=== PATIENT | female | born 1980 | race African-American/Black ===

== ENCOUNTER 2025-02-04 08:01 | Emergency (ER) | payer MEDICARE, OTHER ==
[~2025-02-04] VITALS: Ht 162.6 cm; Wt 65.8 kg
[2025-02-04] MEDS: IV NS 0.9% 1,000 ML BAG IV ONE (08:21)
[2025-02-04] MEDS ORDERED: LORAZEPAM INJ 2 MG/ML VIAL ONE (08:22)
[2025-02-04 08:23] LABS: BASOPHILS % (AUTO) 0.6 % (0.0-2.0); EOSINOPHILS # (AUTO) 0.1 K/uL (0.0-0.7); EOSINOPHILS % (AUTO) 1.3 % (0.0-6.0); HEMATOCRIT 42 % (33-45); LYMPHOCYTES # (AUTO) 0.7 K/uL (0.8-4.8); LYMPHOCYTES % (AUTO) 15.7 % (20.0-44.0); MEAN CORPUSCULAR HEMOGLOBIN 31 PG (26.0-33.0); MEAN CORPUSCULAR HGB CONC 33 g/dl (31.0-36.0); MEAN CORPUSCULAR VOLUME 92 fL (82-100); MONOCYTES # (AUTO) 0.2 K/uL (0.1-1.30); MONOCYTES % (AUTO) 5.4 % (2.0-12.0); NEUTROPHILS # (AUTO) 3.4 K/uL (1.8-8.9); PLATELET COUNT (AUTO) 215 K/uL (150-450); RED BLOOD CELL COUNT(AUTO) 4.58 MIL/uL (4.0-5.2); RED CELL DISTRIBUTION WIDTH 13.7 % (11.5-15.0); WHITE BLOOD COUNT (AUTO) 4.4 K/uL (4.3-11.0)
[2025-02-04] MEDS ORDERED: ONDANSETRON HCL/PF 4 MG/2 ML VIAL ONE (08:27)
[2025-02-04] MEDS: LORAZEPAM INJ 2 MG/ML VIAL IVP ONE (08:30)
[2025-02-04] MEDS: ONDANSETRON HCL/PF 4 MG/2 ML VIAL IV ONE (08:30)
[2025-02-04 08:34] LABS: CALCIUM, SERUM 9.4 mg/dL (8.5-10.1); CARBON DIOXIDE 23 mmol/L (21-32); CHLORIDE 101 mmol/L (98-107); CREATININE 0.8 mg/dL (0.6-1.3); GLUCOSE 117 mg/dL (74-106); POTASSIUM 4.4 mmol/L (3.5-5.1); SODIUM SERUM 137 mmol/L (136-145); UREA NITROGEN, BLOOD 10 mg/dL (7-18)
[2025-02-04 08:37] LABS: ALANINE AMINOTRANSFERASE 22 U/L (12-78); ALBUMIN 4.3 g/dL (3.4-5.0); ALCOHOL, BLOOD < 3 mg/dL (0-10); ALKALINE PHOSPHATASE 81 U/L (46-116); ASPARTATE AMINOTRANSFERASE 27 U/L (15-37); BILIRUBIN,DIRECT 0.1 mg/dL (0.0-0.2); LIPASE 26 U/L (16-77); TOTAL PROTEIN, SERUM 8.4 g/dL (6.4-8.2)
[2025-02-04 08:47] LABS: APPEARANCE,URINE CLEAR (CLEAR); BILIRUBIN,URINE NEGATIVE (NEGATIVE); BLOOD, URINE TRACE-INTA Ery/uL (NEGATIVE); COLOR,URINE YELLOW (YELLOW); KETONES,URINE 1+ mg/dL (NEGATIVE); LEUKOCYTE ESTERASE ,URINE NEGATIVE (NEGATIVE); NITRITE, URINE POSITIVE (NEGATIVE); PROTEIN,URINE 2+ mg/dl (NEGATIVE); UGLUCOSE NEGATIVE (NEGATIVE)
[2025-02-04 08:48] LABS: PREGNANCY TEST URINE QUAL NEGATIVE (NEGATIVE)
[2025-02-04 08:56] LABS: AMPHETAMINE, URINE NEGATIVE (NEGATIVE); BARBITURATE, URINE NEGATIVE (NEGATIVE); BENZODIAZEPINE, URINE NEGATIVE (NEGATIVE); COCCAINE, URINE NEGATIVE (NEGATIVE); OPIATE, URINE NEGATIVE (NEGATIVE); PHENCYCLIDINE SCREEN,URINE NEGATIVE (NEGATIVE)
[2025-02-04 09:00] LABS: CANNABINOID, URINE POSITIVE (NEGATIVE)
[2025-02-04 09:09] LABS: RBC,URINE 0-2 /HPF (0-2)
[2025-02-04 09:10] LABS: ADD URINE CULTURE YES; BACTERIA,URINE Many /HPF (None Seen)
[2025-02-04] MEDS ORDERED: CEFTRIAXONE 1GM BAG (ER ONLY) 50 ML IV ONE (09:27)
[2025-02-04] MEDS: CEFTRIAXONE 1 G in IV D5W 50 ML IV ONE (09:55)
[2025-02-04 10:00] VITALS: TEMP 97.8
[2025-02-04] MEDS ORDERED: KETOROLAC TROMETHAMINE 15 MG/ML VIAL ONE (10:44)
[2025-02-04] MEDS: KETOROLAC TROMETHAMINE 15 MG/ML VIAL IV ONE (10:47)
[2025-02-04] MEDS ORDERED: CEFP200T14 PO (11:05)
[2025-02-04 11:37] VITALS: BP 125/80; O2SAT 99
== END 2025-02-04 11:20 | disposition home or self-care (01) ==
LOC: ER 08:26
DX: N39.0 Urinary tract infection, site not specified (principal); R25.3 Fasciculation; G89.29 Other chronic pain; Z87.42 Personal history of other diseases of the female genital tract; Z87.39 Personal history of other diseases of the musculoskeletal system and connective tissue
CPT/HCPCS: 99285; 96365; 96361; 96375; 71045; 70450; 74176; 85025; 80048; 87077; 87086; 83690; 80076; 84703; 87186; 81001; 36415; 80320; 80307; J2060; J2405; J7030; J0696; J1885; G0480

== ENCOUNTER 2025-02-06 05:27 | Emergency (ER) | payer MEDICARE, OTHER ==
[~2025-02-06] VITALS: Ht 167.6 cm; Wt 73.5 kg
[~2025-02-06 05:27] MED LIST: CEFP200T14 PO
[2025-02-06 06:06] LABS: BASOPHILS % (AUTO) 0.8 % (0.0-2.0); EOSINOPHILS % (AUTO) 0.9 % (0.0-6.0); HEMATOCRIT 38 % (33-45); HEMOGLOBIN 12.6 g/dL (11.5-14.8); LYMPHOCYTES # (AUTO) 0.9 K/uL (0.8-4.8); LYMPHOCYTES % (AUTO) 24.1 % (20.0-44.0); MEAN CORPUSCULAR HEMOGLOBIN 31 PG (26.0-33.0); MEAN CORPUSCULAR HGB CONC 33 g/dl (31.0-36.0); MEAN CORPUSCULAR VOLUME 92 fL (82-100); MONOCYTES # (AUTO) 0.3 K/uL (0.1-1.30); MONOCYTES % (AUTO) 6.7 % (2.0-12.0); NEUTROPHILS # (AUTO) 2.6 K/uL (1.8-8.9); NEUTROPHILS % (AUTO) 67.5 % (43.0-81.0); PLATELET COUNT (AUTO) 174 K/uL (150-450); RED BLOOD CELL COUNT(AUTO) 4.14 MIL/uL (4.0-5.2); RED CELL DISTRIBUTION WIDTH 13.4 % (11.5-15.0); WHITE BLOOD COUNT (AUTO) 3.8 K/uL (4.3-11.0)
[2025-02-06 06:12] LABS: PREGNANCY TEST URINE QUAL NEGATIVE (NEGATIVE)
[2025-02-06 06:20] LABS: AMPHETAMINE, URINE NEGATIVE (NEGATIVE); BARBITURATE, URINE NEGATIVE (NEGATIVE); COCCAINE, URINE NEGATIVE (NEGATIVE); OPIATE, URINE NEGATIVE (NEGATIVE); PHENCYCLIDINE SCREEN,URINE NEGATIVE (NEGATIVE)
[2025-02-06 06:21] LABS: INR 1.13 (0.91-1.10); PARTIAL THROMBOPLASTIN TIME 23.1 SEC (24.3-34.3); PROTHROMBIN TIME 11.9 SECS (9.2-11.1)
[2025-02-06 06:26] LABS: ALANINE AMINOTRANSFERASE 18 U/L (12-78); ALBUMIN 3.7 g/dL (3.4-5.0); ALCOHOL, BLOOD < 3 mg/dL (0-10); ALKALINE PHOSPHATASE 67 U/L (46-116); ASPARTATE AMINOTRANSFERASE 22 U/L (15-37); BILIRUBIN,DIRECT 0.1 mg/dL (0.0-0.2); BILIRUBIN,TOTAL 0.6 mg/dL (0.2-1.0); CALCIUM, SERUM 8.7 mg/dL (8.5-10.1); CARBON DIOXIDE 26 mmol/L (21-32); CHLORIDE 103 mmol/L (98-107); CREATININE 0.7 mg/dL (0.6-1.3); GLUCOSE 105 mg/dL (74-106); POTASSIUM 3.4 mmol/L (3.5-5.1); SODIUM SERUM 136 mmol/L (136-145); TOTAL PROTEIN, SERUM 7.4 g/dL (6.4-8.2); UREA NITROGEN, BLOOD 7 mg/dL (7-18)
[2025-02-06 06:27] LABS: BENZODIAZEPINE, URINE POSITIVE (NEGATIVE); CANNABINOID, URINE POSITIVE (NEGATIVE)
[2025-02-06] MEDS ORDERED: ONDANSETRON HCL/PF 4 MG/2 ML VIAL ONE (06:58)
[2025-02-06] MEDS ORDERED: MORPHINE SULFATE INJ 4 MG/ML DISP.SYRIN ONE (06:59)
[2025-02-06] MEDS: IV NS 0.9% 1,000 ML BAG IV ONE (07:04)
[2025-02-06 07:10] LABS: APPEARANCE,URINE CLEAR (CLEAR); BILIRUBIN,URINE NEGATIVE (NEGATIVE); BLOOD, URINE TRACE-INTA Ery/uL (NEGATIVE); COLOR,URINE YELLOW (YELLOW); KETONES,URINE TRACE mg/dL (NEGATIVE); LEUKOCYTE ESTERASE ,URINE NEGATIVE (NEGATIVE); NITRITE, URINE NEGATIVE (NEGATIVE); PROTEIN,URINE TRACE mg/dl (NEGATIVE); UGLUCOSE NEGATIVE (NEGATIVE); UROBILINOGEN,URINE 0.2 EU/dL (0.2)
[2025-02-06 07:13] LABS: PHENOBARBITAL 0 ug/ml (15-39); PHENYTOIN (DILANTIN) < 3.0 ug/ml (10.0-20.0); VALPROIC ACID < 1 ug/mL (50-100)
[2025-02-06] MEDS: MORPHINE SULFATE INJ 2 MG/ML DISP.SYRIN IV ONE (07:20)
[2025-02-06] MEDS: ONDANSETRON HCL/PF 4 MG/2 ML VIAL IVP ONE (07:21)
[2025-02-06 07:26] LABS: ADD URINE CULTURE NO; BACTERIA,URINE Few /HPF (None Seen); CALCIUM OXALATE CRYSTALS,UR Few /HPF (None Seen); MUCUS,URINE Moderate /LPF (None Seen)
[2025-02-06] MEDS ORDERED: HALOPERIDOL LACTATE INJ 5 MG/ML VIAL ONE (07:34)
[2025-02-06] MEDS: HALOPERIDOL LACTATE INJ 5 MG/ML VIAL IV ONE (07:37)
[2025-02-06 10:33] VITALS: BP 130/81; TEMP 98; O2SAT 98
== END 2025-02-06 10:35 | disposition home or self-care (01) ==
LOC: ER 05:28
DX: K92.0 Hematemesis (principal); K31.84 Gastroparesis; G89.29 Other chronic pain; E87.6 Hypokalemia; R56.9 Unspecified convulsions
CPT/HCPCS: 99285; 96374; 96361; 96375 ×2; 93005 ×2; 70450; 85025; 80048; 80185; 80076; 80184; 84703; 81001; 36415; 80164; 85730; 82962; 80320; 80307; J1630; J2270; J2405; J7030; G0480

== ENCOUNTER 2025-02-14 09:52 | Inpatient (IN) | payer MEDICARE, OTHER ==
[~2025-02-14] VITALS: Ht 154.9 cm; Wt 64.9 kg
[2025-02-14] MEDS: HALOPERIDOL LACTATE INJ 5 MG/ML VIAL IV ONE (10:30)
[2025-02-14] MEDS ORDERED: HALOPERIDOL LACTATE INJ 5 MG/ML VIAL ONE (11:01)
[2025-02-14 11:15] LABS: BASOPHILS % (AUTO) 0.3 % (0.0-2.0); HEMATOCRIT 42 % (33-45); HEMOGLOBIN 13.6 g/dL (11.5-14.8); LYMPHOCYTES # (AUTO) 0.9 K/uL (0.8-4.8); LYMPHOCYTES % (AUTO) 16.9 % (20.0-44.0); MEAN CORPUSCULAR HEMOGLOBIN 31 PG (26.0-33.0); MEAN CORPUSCULAR HGB CONC 32 g/dl (31.0-36.0); MEAN CORPUSCULAR VOLUME 94 fL (82-100); MONOCYTES # (AUTO) 0.2 K/uL (0.1-1.30); MONOCYTES % (AUTO) 4.3 % (2.0-12.0); NEUTROPHILS # (AUTO) 4.3 K/uL (1.8-8.9); NEUTROPHILS % (AUTO) 78.5 % (43.0-81.0); PLATELET COUNT (AUTO) 196 K/uL (150-450); RED BLOOD CELL COUNT(AUTO) 4.47 MIL/uL (4.0-5.2); RED CELL DISTRIBUTION WIDTH 13.9 % (11.5-15.0); WHITE BLOOD COUNT (AUTO) 5.4 K/uL (4.3-11.0)
[2025-02-14] MEDS: IV NS 0.9% 1,000 ML BAG IV ONE (11:18)
[2025-02-14 11:26] LABS: ALBUMIN 4.1 g/dL (3.4-5.0); BILIRUBIN,DIRECT 0.1 mg/dL (0.0-0.2); BILIRUBIN,TOTAL 0.8 mg/dL (0.2-1.0); CALCIUM, SERUM 9.5 mg/dL (8.5-10.1); CREATININE 0.8 mg/dL (0.6-1.3); POTASSIUM 4.5 mmol/L (3.5-5.1); TOTAL PROTEIN, SERUM 8.1 g/dL (6.4-8.2)
[2025-02-14] MEDS ORDERED: LORAZEPAM INJ 2 MG/ML VIAL ONE ×2 (11:34→11:41)
[2025-02-14] MEDS: LORAZEPAM INJ 2 MG/ML VIAL IV ONE (11:46)
[2025-02-14] MEDS ORDERED: LORAZEPAM INJ 2 MG/ML VIAL IV PRN (13:30)
[2025-02-14] MEDS ORDERED: MAGNESIUM HYDROXIDE 30 ML UDC PO PRN (13:30)
[2025-02-14] MEDS ORDERED: MAG HYDROX/AL HYDROX/SIMETH 30 ML UDC PO PRN (13:30)
[2025-02-14 16:00] VITALS: BP 118/79; TEMP 98.8; O2SAT 97
[2025-02-14 19:10] LABS: APPEARANCE,URINE CLEAR (CLEAR); BILIRUBIN,URINE NEGATIVE (NEGATIVE); BLOOD, URINE NEGATIVE Ery/uL (NEGATIVE); COLOR,URINE YELLOW (YELLOW); KETONES,URINE 2+ mg/dL (NEGATIVE); LEUKOCYTE ESTERASE ,URINE NEGATIVE (NEGATIVE); NITRITE, URINE NEGATIVE (NEGATIVE); PH,URINE 6.5 (5.0-8.0); PROTEIN,URINE NEGATIVE (NEGATIVE); UGLUCOSE NEGATIVE (NEGATIVE)
[2025-02-14 19:20] LABS: AMPHETAMINE, URINE NEGATIVE (NEGATIVE); BARBITURATE, URINE NEGATIVE (NEGATIVE); BENZODIAZEPINE, URINE NEGATIVE (NEGATIVE); COCCAINE, URINE NEGATIVE (NEGATIVE); OPIATE, URINE NEGATIVE (NEGATIVE); PHENCYCLIDINE SCREEN,URINE NEGATIVE (NEGATIVE)
[2025-02-14 19:22] LABS: CANNABINOID, URINE POSITIVE (NEGATIVE)
[2025-02-14 19:39] LABS: ADD URINE CULTURE NO; BACTERIA,URINE Rare /HPF (None Seen); RBC,URINE 0-2 /HPF (0-2); WBC,URINE 0-2 /HPF (0-3)
[2025-02-14 20:00] VITALS: BP 128/86; TEMP 98.6; O2SAT 96
[2025-02-14] MEDS: MORPHINE SULFATE INJ 2 MG/ML DISP.SYRIN IV PRN (20:05)
[2025-02-14 22:17] VITALS: BP 118/79; TEMP 98.8; O2SAT 97
[2025-02-14] MEDS: ACETAMINOPHEN 325 MG TABLET PO PRN (22:39)
[2025-02-14] MEDS: ONDANSETRON HCL/PF 4 MG/2 ML VIAL IVP PRN (23:42)
[2025-02-15] VITALS: BP 135/88; TEMP 97.7; O2SAT 98
[2025-02-15] MEDS: IV NS 0.9% 1,000 ML IV PRN (02:35)
[2025-02-15 04:00] VITALS: BP 129/90; TEMP 97.9; O2SAT 96
[2025-02-15 05:55] VITALS: BP 129/90; TEMP 97.9; O2SAT 96
[2025-02-15 07:00] VITALS: BP 139/92; TEMP 98.4; O2SAT 99
[2025-02-15 07:07] LABS: BASOPHILS % (AUTO) 0.3 % (0.0-2.0); EOSINOPHILS % (AUTO) 0.3 % (0.0-6.0); HEMATOCRIT 39 % (33-45); HEMOGLOBIN 12.9 g/dL (11.5-14.8); LYMPHOCYTES % (AUTO) 22.3 % (20.0-44.0); MEAN CORPUSCULAR HEMOGLOBIN 31 PG (26.0-33.0); MEAN CORPUSCULAR HGB CONC 33 g/dl (31.0-36.0); MEAN CORPUSCULAR VOLUME 93 fL (82-100); MONOCYTES # (AUTO) 0.3 K/uL (0.1-1.30); MONOCYTES % (AUTO) 7.6 % (2.0-12.0); NEUTROPHILS # (AUTO) 3.1 K/uL (1.8-8.9); NEUTROPHILS % (AUTO) 69.5 % (43.0-81.0); PLATELET COUNT (AUTO) 185 K/uL (150-450); RED BLOOD CELL COUNT(AUTO) 4.19 MIL/uL (4.0-5.2); RED CELL DISTRIBUTION WIDTH 13.7 % (11.5-15.0); WHITE BLOOD COUNT (AUTO) 4.4 K/uL (4.3-11.0)
[2025-02-15 08:01] LABS: THYROID STIMULATING HORMONE 0.91 uIU/mL (0.358-3.74)
[2025-02-15 08:02] LABS: CALCIUM, SERUM 8.5 mg/dL (8.5-10.1); CREATININE 0.7 mg/dL (0.6-1.3); PHOSPHORUS 3.2 mg/dL (2.5-4.9); POTASSIUM 3.9 mmol/L (3.5-5.1)
[2025-02-15] MEDS: PANTOPRAZOLE 40 MG VIAL IV SCH (08:03)
[2025-02-15 11:22] VITALS: BP 144/85; TEMP 99; O2SAT 99
[2025-02-15 16:00] VITALS: BP 126/93; TEMP 98.1; O2SAT 97
== END 2025-02-15 17:40 | disposition home or self-care (01) | DRG 392 ==
LOC: ER 09:55 → TELE 12:15 → MED 02-15 11:33
PROVIDERS: ADMIT Nurse Practitioner Family; ATTEND Nurse Practitioner Family
DX: K31.84 Gastroparesis (principal); E87.1 Hypo-osmolality and hyponatremia; E66.9 Obesity, unspecified; G40.909 Epilepsy, unspecified, not intractable, without status epilepticus; K57.30 Diverticulosis of large intestine without perforation or abscess without bleeding; Z68.27 Body mass index [BMI] 27.0-27.9, adult; G89.29 Other chronic pain
CPT/HCPCS: 36415; 76700-TC; 80048-TC; 80076-TC; 81001; 82962-TC; 83690-TC; 83735-TC; 84100-TC; 84443-TC; 84702-TC; 85025-TC; 87086-TC; A4223; G0378; J1630; J2060; J2270; J2405; J2470; J7030

== ENCOUNTER 2025-02-24 08:16 | Emergency (ER) | payer MEDICARE, OTHER ==
[~2025-02-24] VITALS: Ht 154.9 cm; Wt 73.0 kg
[2025-02-24] MEDS ORDERED: FAMOTIDINE/PF INJ 20 MG/2 ML VIAL IV ONE (08:45)
[2025-02-24] MEDS ORDERED: ONDANSETRON HCL/PF 4 MG/2 ML VIAL ONE (08:45)
[2025-02-24] MEDS: IV NS 0.9% 1,000 ML BAG IV ONE (09:05)
[2025-02-24] MEDS: FAMOTIDINE/PF INJ 20 MG/2 ML VIAL IV ONE (09:05)
[2025-02-24] MEDS: ONDANSETRON HCL/PF 4 MG/2 ML VIAL IVP ONE (09:06)
[2025-02-24 09:08] LABS: EOSINOPHILS % (AUTO) 0.1 % (0.0-6.0); NEUTROPHILS # (AUTO) 3.1 K/uL (1.8-8.9)
[2025-02-24 09:10] LABS: BASOPHILS % (AUTO) 0.4 % (0.0-2.0); HEMATOCRIT 43 % (33-45); HEMOGLOBIN 14.3 g/dL (11.5-14.8); LYMPHOCYTES # (AUTO) 0.9 K/uL (0.8-4.8); LYMPHOCYTES % (AUTO) 21.6 % (20.0-44.0); MEAN CORPUSCULAR HEMOGLOBIN 31 PG (26.0-33.0); MEAN CORPUSCULAR HGB CONC 33 g/dl (31.0-36.0); MEAN CORPUSCULAR VOLUME 93 fL (82-100); MONOCYTES # (AUTO) 0.2 K/uL (0.1-1.30); MONOCYTES % (AUTO) 5.5 % (2.0-12.0); NEUTROPHILS % (AUTO) 72.4 % (43.0-81.0); PLATELET COUNT (AUTO) 216 K/uL (150-450); RED CELL DISTRIBUTION WIDTH 13.5 % (11.5-15.0); WHITE BLOOD COUNT (AUTO) 4.2 K/uL (4.3-11.0)
[2025-02-24 09:11] LABS: CALCIUM, SERUM 8.8 mg/dL (8.5-10.1); CARBON DIOXIDE 27 mmol/L (21-32); CHLORIDE 101 mmol/L (98-107); CREATININE 0.8 mg/dL (0.6-1.3); GLUCOSE 116 mg/dL (74-106); POTASSIUM 4.5 mmol/L (3.5-5.1); SODIUM SERUM 133 mmol/L (136-145); UREA NITROGEN, BLOOD 7 mg/dL (7-18)
[2025-02-24 09:17] LABS: ALANINE AMINOTRANSFERASE 17 U/L (12-78); ALBUMIN 4.4 g/dL (3.4-5.0); ALKALINE PHOSPHATASE 81 U/L (46-116); ASPARTATE AMINOTRANSFERASE 22 U/L (15-37); BILIRUBIN,DIRECT 0.1 mg/dL (0.0-0.2); BILIRUBIN,TOTAL 0.5 mg/dL (0.2-1.0); LIPASE 39 U/L (16-77); TOTAL PROTEIN, SERUM 8.9 g/dL (6.4-8.2)
[2025-02-24] MEDS ORDERED: ONDA4TAB5 PO (10:46)
[2025-02-24 10:49] LABS: APPEARANCE,URINE CLEAR (CLEAR); BILIRUBIN,URINE NEGATIVE (NEGATIVE); BLOOD, URINE NEGATIVE Ery/uL (NEGATIVE); COLOR,URINE YELLOW (YELLOW); KETONES,URINE TRACE mg/dL (NEGATIVE); LEUKOCYTE ESTERASE ,URINE NEGATIVE (NEGATIVE); NITRITE, URINE NEGATIVE (NEGATIVE); PH,URINE 6.5 (5.0-8.0); PROTEIN,URINE NEGATIVE (NEGATIVE); UGLUCOSE NEGATIVE (NEGATIVE)
[2025-02-24 11:23] VITALS: BP 130/90; TEMP 98.6; O2SAT 99
[2025-02-24 11:23] LABS: ADD URINE CULTURE NO; BACTERIA,URINE Rare /HPF (None Seen); RBC,URINE 0-2 /HPF (0-2); SQUAMOUS EPITHELIAL CELL,UR 0-2 /HPF (None Seen); WBC,URINE 0-2 /HPF (0-3)
== END 2025-02-24 11:26 | disposition home or self-care (01) ==
LOC: ER 08:18
DX: G89.29 Other chronic pain (principal); R10.84 Generalized abdominal pain; K31.84 Gastroparesis; E11.43 Type 2 diabetes mellitus with diabetic autonomic (poly)neuropathy; R10.2 Pelvic and perineal pain; Z87.39 Personal history of other diseases of the musculoskeletal system and connective tissue
CPT/HCPCS: 99285; 74176; 96374; 71045; 96361; 96375; 93005; 85025; 80048; 87086; 83690; 80076; 81001; 36415; 84484; 82962; 84702; J1308; J2405; J7030

== ENCOUNTER 2025-03-25 08:02 | Emergency (ER) | payer MEDICARE, OTHER ==
[~2025-03-25] VITALS: Ht 172.7 cm; Wt 68.0 kg
[~2025-03-25 08:02] MED LIST changes: -CEFP200T14 PO; +ONDA4TAB5 PO
[2025-03-25] MEDS ORDERED: ONDANSETRON HCL/PF 4 MG/2 ML VIAL ONE (08:24)
[2025-03-25] MEDS: IV NS 0.9% 1,000 ML BAG IV ONE (08:46)
[2025-03-25] MEDS: ONDANSETRON HCL/PF 4 MG/2 ML VIAL IVP ONE (08:47)
[2025-03-25 08:49] LABS: PLATELET COUNT (AUTO) 198 K/uL (150-450); RED BLOOD CELL COUNT(AUTO) 4.39 MIL/uL (4.0-5.2); RED CELL DISTRIBUTION WIDTH 13.8 % (11.5-15.0); WHITE BLOOD COUNT (AUTO) 4.0 K/uL (4.3-11.0)
[2025-03-25 08:59] LABS: CALCIUM, SERUM 9.1 mg/dL (8.5-10.1); CREATININE 0.7 mg/dL (0.6-1.3); SODIUM SERUM 135.0 mmol/L (136-145); UREA NITROGEN, BLOOD 4.0 mg/dL (7-18)
[2025-03-25 09:06] LABS: ASPARTATE AMINOTRANSFERASE 21.0 U/L (15-37); TOTAL PROTEIN, SERUM 8.1 g/dL (6.4-8.2)
[2025-03-25 10:51] LABS: APPEARANCE,URINE CLEAR (CLEAR); BLOOD, URINE TRACE-INTA Ery/uL (NEGATIVE); LEUKOCYTE ESTERASE ,URINE NEGATIVE (NEGATIVE); NITRITE, URINE NEGATIVE (NEGATIVE); UGLUCOSE NEGATIVE (NEGATIVE)
[2025-03-25 10:53] LABS: PREGNANCY TEST URINE QUAL NEGATIVE (NEGATIVE)
[2025-03-25 11:04] LABS: ADD URINE CULTURE NO; SQUAMOUS EPITHELIAL CELL,UR 0-2 /HPF (None Seen)
[2025-03-25] MEDS ORDERED: KETOROLAC TROMETHAMINE INJ 30 MG/ML VIAL ONE (12:24)
[2025-03-25] MEDS: KETOROLAC TROMETHAMINE INJ 30 MG/ML VIAL IV ONE (12:29)
[2025-03-25] MEDS ORDERED: ONDA4TAB5 PO (13:41)
[2025-03-25 14:08] VITALS: BP 135/90; TEMP 98; O2SAT 98
== END 2025-03-25 14:08 | disposition home or self-care (01) ==
LOC: ER 08:02
DX: G89.29 Other chronic pain (principal); R10.9 Unspecified abdominal pain; K31.84 Gastroparesis; R00.0 Tachycardia, unspecified; R94.31 Abnormal electrocardiogram [ECG] [EKG]; Z87.39 Personal history of other diseases of the musculoskeletal system and connective tissue
CPT/HCPCS: 99285; 96374; 96361; 96375; 93005; 85025; 80048; 83690; 80076; 84703; 81001; 36415; 84484; J1885; J2405; J7030

== ENCOUNTER 2025-04-24 03:39 | Inpatient (IN) | payer MEDICARE, OTHER ==
[2025-04-24] VITALS (9 sets, daily range): BP systolic 121–163; BP diastolic 85–108; TEMP 98–98.8; O2SAT 100
[~2025-04-24] VITALS: Ht 160 cm; Wt 59.0 kg
[2025-04-24] MEDS ORDERED: LORAZEPAM INJ 2 MG/ML VIAL ONE ×2 (04:01→04:37)
[2025-04-24] MEDS ORDERED: LEVETIRACETAM (500MG) 500 MG/5 ML VIAL IV ONE ×2 (04:07→06:29)
[2025-04-24] MEDS: IV NS 0.9% 1,000 ML IV ONE (04:09)
[2025-04-24] MEDS: LEVETIRACETAM (500MG) 1,000 MG in IV NS 0.9% 90 ML IV STA (04:10)
[2025-04-24 04:21] LABS: PLATELET COUNT (AUTO) 193 K/uL (150-450); RED BLOOD CELL COUNT(AUTO) 4.43 MIL/uL (4.0-5.2); RED CELL DISTRIBUTION WIDTH 13.7 % (11.5-15.0); WHITE BLOOD COUNT (AUTO) 5.2 K/uL (4.3-11.0)
[2025-04-24] MEDS: LORAZEPAM INJ 2 MG/ML VIAL IM STA (04:23)
[2025-04-24] MEDS: LORAZEPAM INJ 2 MG/ML VIAL IV ONE (04:38)
[2025-04-24 04:53] LABS: ALCOHOL, BLOOD < 3 mg/dL (0-10); ASPARTATE AMINOTRANSFERASE 31 U/L (15-37); CALCIUM, SERUM 9.6 mg/dL (8.5-10.1); CREATININE 1.0 mg/dL (0.6-1.3); NT-PRO BNP 19 pg/mL (0-125); SODIUM SERUM 134 mmol/L (136-145); TOTAL PROTEIN, SERUM 9.2 g/dL (6.4-8.2); UREA NITROGEN, BLOOD 6 mg/dL (7-18)
[2025-04-24] MEDS: ONDANSETRON HCL/PF - ER 4 MG/2 ML VIAL IV ONE (05:30)
[2025-04-24] MEDS ORDERED: MAGNESIUM HYDROXIDE 30 ML UDC PO PRN (05:30)
[2025-04-24] MEDS ORDERED: MAG HYDROX/AL HYDROX/SIMETH 30 ML UDC PO PRN (05:30)
[2025-04-24] MEDS ORDERED: ACETAMINOPHEN 325 MG TABLET PO PRN (05:30)
[2025-04-24] MEDS: HYDROMORPHONE 1 MG/1 ML DISP.SYRIN IV ONE (05:30)
[2025-04-24] MEDS ORDERED: ONDANSETRON HCL/PF 4 MG/2 ML VIAL IVP PRN (05:30)
[2025-04-24 05:42] LABS: APPEARANCE,URINE CLEAR (CLEAR); BLOOD, URINE TRACE-INTA Ery/uL (NEGATIVE); LEUKOCYTE ESTERASE ,URINE NEGATIVE (NEGATIVE); NITRITE, URINE NEGATIVE (NEGATIVE); UGLUCOSE NEGATIVE (NEGATIVE)
[2025-04-24 05:43] LABS: ADD URINE CULTURE NO; PREGNANCY TEST URINE QUAL NEGATIVE (NEGATIVE); SQUAMOUS EPITHELIAL CELL,UR Few /HPF (None Seen)
[2025-04-24 05:53] LABS: AMPHETAMINE, URINE NEGATIVE (NEGATIVE); BARBITURATE, URINE NEGATIVE (NEGATIVE); BENZODIAZEPINE, URINE NEGATIVE (NEGATIVE); COCCAINE, URINE NEGATIVE (NEGATIVE); OPIATE, URINE NEGATIVE (NEGATIVE)
[2025-04-24 05:56] LABS: CANNABINOID, URINE POSITIVE (NEGATIVE)
[2025-04-24] MEDS: LEVETIRACETAM (500MG) 1,000 MG in IV NS 0.9% 90 ML IV ONE (06:34)
[2025-04-24] MEDS: LORAZEPAM INJ 2 MG/ML VIAL IV PRN ×2 (09:14→18:54)
[2025-04-24] MEDS: PANTOPRAZOLE 40 MG VIAL IV SCH (09:14)
[2025-04-24] MEDS: IV NS 0.9% 1,000 ML IV SCH (10:19)
[2025-04-24] MEDS: LEVETIRACETAM (500MG) 500 MG in IV NS 0.9% 100 ML IV SCH (11:27)
[2025-04-24] MEDS: LORAZEPAM INJ 2 MG/ML VIAL IV STA (14:03)
[2025-04-24] MEDS: KETOROLAC TROMETHAMINE INJ 30 MG/ML VIAL IV PRN (18:38)
[2025-04-25] VITALS (10 sets, daily range): BP systolic 123–156; BP diastolic 80–102; TEMP 97.9–99.5; O2SAT 96–100
[2025-04-25 06:51] LABS: CALCIUM, SERUM 8.1 mg/dL (8.5-10.1); CREATININE 0.7 mg/dL (0.6-1.3); PHOSPHORUS 2.9 mg/dL (2.5-4.9); SODIUM SERUM 136.0 mmol/L (136-145); UREA NITROGEN, BLOOD 6.0 mg/dL (7-18)
[2025-04-25 08:27] LABS: LDL 91.0 mg/dL (0-99)
[2025-04-25 10:07] LABS: PLATELET COUNT (AUTO) 189 K/uL (150-450); RED BLOOD CELL COUNT(AUTO) 4.25 MIL/uL (4.0-5.2); RED CELL DISTRIBUTION WIDTH 13.7 % (11.5-15.0); WHITE BLOOD COUNT (AUTO) 3.7 K/uL (4.3-11.0)
[2025-04-25] MEDS: LEVETIRACETAM (500MG) 500 MG in IV NS 0.9% 100 ML IV ONE (11:51)
[2025-04-25] MEDS: LEVETIRACETAM (500MG) 1,000 MG in IV NS 0.9% 90 ML IV SCH (20:52)
[2025-04-26] VITALS: BP 152/112; TEMP 98.2; O2SAT 100
[2025-04-26 04:00] VITALS: BP 159/112; TEMP 97.9; O2SAT 100
[2025-04-26 08:00] VITALS: BP 154/107; TEMP 98.4; O2SAT 99
[2025-04-26] MEDS ORDERED: LEVE1000 PO (12:23)
[2025-04-26 12:32] VITALS: BP 135/88; TEMP 98.4; O2SAT 100
[2025-04-26] MEDS: BISACODYL SUPP (10 MG) 10 MG/SUPP.RECT SUPP.RECT RC ONE (15:14)
[2025-04-26 16:00] VITALS: BP 149/92; TEMP 98.6; O2SAT 97
== END 2025-04-26 16:00 | disposition home health service (06) | DRG 101 ==
LOC: ER 03:42 → TELE 06:03
PROVIDERS: ADMIT Student in an Organized Health Care Education/Training Program
DX: G40.409 Other generalized epilepsy and epileptic syndromes, not intractable, without status epilepticus (principal); G90.59 Complex regional pain syndrome I of other specified site; K31.84 Gastroparesis; K57.30 Diverticulosis of large intestine without perforation or abscess without bleeding; K58.9 Irritable bowel syndrome, unspecified; F99 Mental disorder, not otherwise specified
CPT/HCPCS: 36415; 70450-TC; 70551-TC; 71045-TC; 80048-TC; 80053-TC; 80061-TC; 81001; 82962-TC; 83735-TC; 83880; 84100-TC; 84443-TC; 84484-TC; 84703-TC; 85025-TC; 95819-TC; 97110-TC; 97530-TC; A4223; G0378; G0480; J1885; J1953; J2060; J2405; J2470; J7030

== ENCOUNTER 2025-05-10 04:53 | Inpatient (IN) | payer MEDICARE, OTHER ==
[2025-05-10] VITALS (7 sets, daily range): BP systolic 109–144; BP diastolic 79–105; TEMP 97.5–98.2; O2SAT 98–100
[~2025-05-10] VITALS: Ht 160 cm; Wt 58.6 kg
[~2025-05-10 04:53] MED LIST changes: +LEVE1000 PO
[2025-05-10] MEDS: LORAZEPAM INJ 2 MG/ML VIAL IVP ONE (04:56)
[2025-05-10] MEDS ORDERED: LORAZEPAM INJ 2 MG/ML VIAL ONE (05:02)
[2025-05-10] MEDS ORDERED: LEVETIRACETAM (500MG) 500 MG/5 ML VIAL IV ONE ×2 (05:04→05:07)
[2025-05-10] MEDS ORDERED: ONDANSETRON HCL/PF 4 MG/2 ML VIAL ONE (05:07)
[2025-05-10] MEDS: IV NS 0.9% 1,000 ML BAG IV ONE (05:11)
[2025-05-10] MEDS: LEVETIRACETAM (500MG) 1,000 MG in IV NS 0.9% 90 ML IV SCH (05:11)
[2025-05-10] MEDS: ONDANSETRON HCL/PF 4 MG/2 ML VIAL IVP ONE (05:11)
[2025-05-10 05:20] LABS: PLATELET COUNT (AUTO) 273 K/uL (150-450); RED BLOOD CELL COUNT(AUTO) 4.97 MIL/uL (4.0-5.2); RED CELL DISTRIBUTION WIDTH 13.7 % (11.5-15.0); WHITE BLOOD COUNT (AUTO) 6.0 K/uL (4.3-11.0)
[2025-05-10 05:26] LABS: CREATININE 0.9 mg/dL (0.6-1.3)
[2025-05-10 05:32] LABS: ASPARTATE AMINOTRANSFERASE 25 U/L (15-37); CALCIUM, SERUM 9.7 mg/dL (8.5-10.1); SODIUM SERUM 136 mmol/L (136-145); TOTAL PROTEIN, SERUM 9.2 g/dL (6.4-8.2); UREA NITROGEN, BLOOD 6 mg/dL (7-18)
[2025-05-10 05:33] LABS: ALCOHOL, BLOOD < 3 mg/dL (0-10)
[2025-05-10 05:41] LABS: INR 1.02 (0.91-1.10)
[2025-05-10] MEDS: LORAZEPAM INJ 2 MG/ML VIAL IV ONE (06:27)
[2025-05-10 06:33] LABS: AMPHETAMINE, URINE NEGATIVE (NEGATIVE); BARBITURATE, URINE NEGATIVE (NEGATIVE); BENZODIAZEPINE, URINE NEGATIVE (NEGATIVE); COCCAINE, URINE NEGATIVE (NEGATIVE); OPIATE, URINE NEGATIVE (NEGATIVE)
[2025-05-10 06:36] LABS: CANNABINOID, URINE POSITIVE (NEGATIVE)
[2025-05-10 06:50] LABS: PREGNANCY TEST URINE QUAL NEGATIVE (NEGATIVE)
[2025-05-10] MEDS ORDERED: ACETAMINOPHEN 650 MG/SUPP.RECT RC PRN (07:30)
[2025-05-10] MEDS: ENOXAPARIN SODIUM 40 MG/0.4 ML DISP.SYRIN SQ SCH (07:30)
[2025-05-10] MEDS ORDERED: ONDANSETRON HCL/PF 4 MG/2 ML VIAL IVP PRN (07:30)
[2025-05-10] MEDS ORDERED: LISI-768 PO (07:58)
[2025-05-10] MEDS ORDERED: LEVE100023 PO (07:58)
[2025-05-10] MEDS ORDERED: GABA300C PO (07:58)
[2025-05-10] MEDS ORDERED: LURA80TA PO (07:58)
[2025-05-10] MEDS ORDERED: GUAN1TAB PO (07:58)
[2025-05-10 08:35] LABS: PHOSPHORUS 3.9 mg/dL (2.5-4.9)
[2025-05-10] MEDS: LORAZEPAM INJ 2 MG/ML VIAL IV PRN (08:36)
[2025-05-10] MEDS: IV NS 0.9% 1,000 ML IV SCH (08:56)
[2025-05-10] MEDS ORDERED: GUANFACINE HCL 1 MG TABLET PO SCH (09:00)
[2025-05-10] MEDS: VALPROATE 1,000 MG in IV D5W 100 ML IV STA (09:49)
[2025-05-10] MEDS: GABAPENTIN 300 MG CAPSULE PO SCH (10:11)
[2025-05-10] MEDS: LEVETIRACETAM (250 MG) 250 MG TABLET PO SCH (10:11)
[2025-05-10] MEDS: LISINOPRIL (5MG) 5 MG TABLET PO SCH (10:12)
[2025-05-10] MEDS: PANTOPRAZOLE 40 MG VIAL IV SCH (10:12)
[2025-05-10] MEDS: QUETIAPINE FUMARATE 25 MG TABLET PO SCH (16:54)
[2025-05-10] MEDS: MORPHINE SULFATE INJ 2 MG/ML DISP.SYRIN IV PRN (16:59)
[2025-05-10] MEDS ORDERED: LEVETIRACETAM (500MG) 1,000 MG in IV NS 0.9% 90 ML IV SCH (17:00)
[2025-05-10] MEDS: VALPROATE 500 MG in IV D5W 100 ML IV SCH (18:00)
[2025-05-11] VITALS (9 sets, daily range): BP systolic 105–124; BP diastolic 72–89; TEMP 97.2–98.6; O2SAT 98–100
[2025-05-11] MEDS: IV NS 0.9% 1,000 ML IV PRN (00:44)
[2025-05-11 07:02] LABS: APPEARANCE,URINE SLIGHTLY CLOUDY (CLEAR); BLOOD, URINE NEGATIVE Ery/uL (NEGATIVE); LEUKOCYTE ESTERASE ,URINE NEGATIVE (NEGATIVE); NITRITE, URINE NEGATIVE (NEGATIVE); UGLUCOSE NEGATIVE (NEGATIVE)
[2025-05-11 07:36] LABS: ADD URINE CULTURE NO; SQUAMOUS EPITHELIAL CELL,UR 0-2 /HPF (None Seen)
[2025-05-11] MEDS: PANTOPRAZOLE 40 MG TABLET.DR PO SCH (09:04)
[2025-05-11 09:16] LABS: CALCIUM, SERUM 8.4 mg/dL (8.5-10.1); CREATININE 0.8 mg/dL (0.6-1.3); SODIUM SERUM 139.0 mmol/L (136-145); UREA NITROGEN, BLOOD 8.0 mg/dL (7-18)
[2025-05-11 09:17] LABS: PLATELET COUNT (AUTO) 159 K/uL (150-450); RED BLOOD CELL COUNT(AUTO) 4.45 MIL/uL (4.0-5.2); RED CELL DISTRIBUTION WIDTH 13.9 % (11.5-15.0); WHITE BLOOD COUNT (AUTO) 3.9 K/uL (4.3-11.0)
[2025-05-11 09:28] LABS: VALPROIC ACID 58.0 ug/mL (50-100)
[2025-05-12] VITALS: BP 119/78; TEMP 97.6; O2SAT 100
[2025-05-12 01:00] VITALS: BP 119/78; TEMP 97.6; O2SAT 100
[2025-05-12 04:00] VITALS: BP 120/82; TEMP 97.4; O2SAT 100
[2025-05-12 05:00] VITALS: BP 120/82; TEMP 97.4; O2SAT 100
[2025-05-12 07:47] LABS: CALCIUM, SERUM 8.5 mg/dL (8.5-10.1); CREATININE 0.9 mg/dL (0.6-1.3); SODIUM SERUM 139.0 mmol/L (136-145); UREA NITROGEN, BLOOD 11.0 mg/dL (7-18)
[2025-05-12 07:53] LABS: PLATELET COUNT (AUTO) 199 K/uL (150-450); RED BLOOD CELL COUNT(AUTO) 4.40 MIL/uL (4.0-5.2); RED CELL DISTRIBUTION WIDTH 14.1 % (11.5-15.0); WHITE BLOOD COUNT (AUTO) 3.3 K/uL (4.3-11.0)
[2025-05-12 07:59] LABS: VALPROIC ACID 82.0 ug/mL (50-100)
[2025-05-12 08:00] VITALS: BP 131/42; TEMP 97.5; O2SAT 100
[2025-05-12 08:33] VITALS: BP 139/91
[2025-05-12] MEDS: ESCITALOPRAM OXALATE (10 MG) 10 MG TABLET PO SCH (08:33)
[2025-05-12] MEDS: ACETAMINOPHEN 325 MG TABLET PO PRN (09:20)
[2025-05-12] MEDS ORDERED: VALP250C3 PO (09:30)
[2025-05-12] MEDS: VALPROIC ACID 250 MG/5 ML UDC PO SCH (12:46)
== END 2025-05-12 15:40 | disposition home or self-care (01) | DRG 101 ==
LOC: ER 04:54 → TELE-TD 07:33 → TELE1 05-11 09:53 → MEDSG1 05-12 09:38
PROVIDERS: ADMIT Internal Medicine; ATTEND Internal Medicine
DX: R56.9 Unspecified convulsions (principal); G90.50 Complex regional pain syndrome I, unspecified; K31.84 Gastroparesis; K58.9 Irritable bowel syndrome, unspecified; K57.30 Diverticulosis of large intestine without perforation or abscess without bleeding; F39 Unspecified mood [affective] disorder; F99 Mental disorder, not otherwise specified; Z79.899 Other long term (current) drug therapy
CPT/HCPCS: 36415; 70450-TC; 71045-TC; 80048-TC; 80076-TC; 80164-TC; 81001; 82962-TC; 83735-TC; 84100-TC; 84703-TC; 85025-TC; 85730-TC; 97110-TC; 97116-TC; 97530-TC; A4223; G0378; G0480; J1650; J1953; J2060; J2270; J2405; J2470; J3490; J7030; J7060

== ENCOUNTER 2025-05-16 16:33 | Emergency (ER) | payer MEDICARE, OTHER ==
[~2025-05-16] VITALS: Ht 160 cm; Wt 58.5 kg
[~2025-05-16 16:33] MED LIST changes: +GABA300C PO; +GUAN1TAB PO; -LEVE1000 PO; +LEVE100023 PO; +LISI-768 PO; +LURA80TA PO; -ONDA4TAB5 PO; +VALP250C3 PO
[2025-05-16] MEDS ORDERED: MORPHINE SULFATE INJ 2 MG/ML DISP.SYRIN ONE (17:22)
[2025-05-16] MEDS ORDERED: ONDANSETRON HCL/PF 4 MG/2 ML VIAL ONE (17:22)
[2025-05-16] MEDS: IV LR 1000 ML 1,000 ML BAG IV ONE ×2 (17:26→22:03)
[2025-05-16] MEDS: ONDANSETRON HCL/PF 4 MG/2 ML VIAL IV ONE (17:27)
[2025-05-16] MEDS: MORPHINE SULFATE INJ 2 MG/ML DISP.SYRIN IV ONE (17:27)
[2025-05-16 17:50] LABS: PLATELET COUNT (AUTO) 185 K/uL (150-450); RED BLOOD CELL COUNT(AUTO) 4.38 MIL/uL (4.0-5.2); RED CELL DISTRIBUTION WIDTH 13.8 % (11.5-15.0); WHITE BLOOD COUNT (AUTO) 5.6 K/uL (4.3-11.0)
[2025-05-16 17:59] LABS: CALCIUM, SERUM 8.9 mg/dL (8.5-10.1); CREATININE 0.8 mg/dL (0.6-1.3); SODIUM SERUM 138 mmol/L (136-145); UREA NITROGEN, BLOOD 9 mg/dL (7-18)
[2025-05-16 18:09] LABS: PREGNANCY TEST SERUM QUAN 1 mIU/mL (0-6)
[2025-05-16 18:11] LABS: ALCOHOL, BLOOD < 3 mg/dL (0-10)
[2025-05-16 18:35] LABS: PREGNANCY TEST URINE QUAL NEGATIVE (NEGATIVE)
[2025-05-16 18:43] LABS: AMPHETAMINE, URINE NEGATIVE (NEGATIVE); BARBITURATE, URINE NEGATIVE (NEGATIVE); BENZODIAZEPINE, URINE NEGATIVE (NEGATIVE); CANNABINOID, URINE POSITIVE (NEGATIVE); COCCAINE, URINE NEGATIVE (NEGATIVE); OPIATE, URINE POSITIVE (NEGATIVE)
[2025-05-16 22:22] VITALS: BP 157/90; TEMP 98.3; O2SAT 100
== END 2025-05-16 22:22 | disposition home or self-care (01) ==
LOC: ER 16:33
DX: R10.84 Generalized abdominal pain (principal); G40.909 Epilepsy, unspecified, not intractable, without status epilepticus; I10 Essential (primary) hypertension; R10.2 Pelvic and perineal pain; K31.84 Gastroparesis; K58.9 Irritable bowel syndrome, unspecified; Z79.899 Other long term (current) drug therapy
CPT/HCPCS: 99285; 96374; 96361; 96375; 93005; 85025; 80048; 83690; 84703; 36415; 80164; 82962 ×2; 84702; 80320; 80307; J2405; J7120; J2270; G0480